=== PATIENT | male | born 1985 | race Caucasian/White ===

== ENCOUNTER 2020-04-25 08:09 | Outpatient (CLI) | payer BC ==
[2020-04-25] MEDS ORDERED: Lidocaine 1% PF 10 ML AMP ONE (08:50)
[2020-04-25] MEDS ORDERED: EPINEPHrine 1 MG/ML AMP ONE (08:50)
[2020-04-25] MEDS ORDERED: Gadobenate Dimeglumine 529 MG/1 ML (20ML VIAL) ONE (08:50)
[2020-04-25] MEDS ORDERED: Iopamidol 300 61% 50 ML VIAL FS ONE (08:50)
[2020-04-25] MEDS ORDERED: Magnevist 469MG/ML 20 ML VIAL ONE (13:13)
--- NOTE | 2020-04-25 14:22 | MRI ---
POST ARTHROGRAM MRI OF RIGHT SHOULDER PERFORMED WITH CONTRAST ENHANCEMENT: 04/25/20 HISTORY: Post arthrogram MRI of the right shoulder performed with contrast enhancement. HISTORY: Right shoulder injury. Mild arthrosis of the AC joint. The supra as well as infraspinatus tendons are intact. Subscapularis muscle and tendon are normal in appearance. The biceps tendon is normal in position wit hin the bicipital groove. The bicipital labral complex shows a SLAP type tear beginning at the level of the biceps anchor exten ding into the superior and slightly into the posterior superior labrum. The inferior glenohumeral ligaments and labral complex appears intact. Some extravasation of fluid wh ich is felt to be iatrogenic. IMPRESSION: SLAP type tear involving the superior and posterior superior labrum. POS: GRACE
--- NOTE | 2020-04-25 18:50 | RAD ---
Arthrogram right shoulder HISTORY: Right rotator cuff tear. Shoulder pain. FINDINGS: After explaining the procedure and answering all questions, the anterior aspect of the [facility] t shoulder was prepped and draped in usual sterile fashion. Sterile technique, buffered local anesthesia, fluoroscopic guidance, and an anterior approach were us ed to carefully advance the tip of a 22-gauge spinal needle to the joint capsule at the level of the humeral head. A total volume of 8 cc liquid mixture containing normal saline, 1% lidocaine, iodinated contrast, and small amounts of gadolinium and epinephrine were then instilled into the joint capsule under fluoroscopic control. Needle was removed. Patient tolerated the procedure well and was transferred to MRI in good condition for further imaging. IMPRESSION : Technically successful right shoulder arthrogram. MRI is pending.
== END 2020-04-25 08:10 | disposition home or self-care (01) ==
LOC: RAD 08:09
PROVIDERS: ATTEND Orthopaedic Surgery
DX: S46.011A Strain of muscle(s) and tendon(s) of the rotator cuff of right shoulder, initial encounter (principal); S43.431A Superior glenoid labrum lesion of right shoulder, initial encounter
CPT/HCPCS: 23350; A9577; A9579; J0171; J2001; Q9967

== ENCOUNTER 2020-04-30 07:00 | Outpatient (CLI) | payer BC ==
[2020-04-30 16:11] LABS: #Basophils 0.1 10x3/uL (0.0-0.2); #Eosinphils 0.1 10x3/uL (0.0-0.5); #Monocytes 0.4 10x3/uL (0.0-1.1); %Basophils 1.2 % (0.0-2.0); %Eosinophils 2.8 % (0.0-6.0); %Monocytes 8.5 % (0.0-10.0); %Neutrophils 59.3 % (40.0-75.0); Hemoglobin 13.5 g/dL (14.0-18.0); Mean Corpuscular HGB CONC 32.8 G/DL (32.0-36.0); Mean Corpuscular Hemoglobin 29.4 PG (27.0-33.0); Mean Corpuscular Volume 89.8 fl (80.0-100.0); Mean Platelet Volume 10.9 fl (7.4-10.4); Platelet Count 256 10x3/uL (130-400); RBC Distribution Width 12.4 % (11.5-14.5); Red Blood Cell (RBC) Count 4.59 10x6/uL (4.40-5.80)
[2020-04-30 16:23] LABS: Anion Gap 15 mmol/L (10-20); BUN (Urea Nitrogen) 12 mg/dL (8.9-20.6); Calc. Creatinine Clearance 0 mL/min (70-130); Calcium 9.3 mg/dL (7.8-10.44); Carbon Dioxide 24 mmol/L (22-29); Chloride 105 mmol/L (98-107); Glucose 97 mg/dL (70-105); Potassium 3.9 mmol/L (3.5-5.1); Sodium 140 mmol/L (136-145)
[2020-05-01 09:42] LABS: SARS-CoV-2 MS2 Positive; SARS-CoV-2 N Gene Negative; SARS-CoV-2 S Gene Negative; SARS-CoV-2 by NAA Not Detected (NotDetected); SARS-CoV-2 orf1ab Negative
== END 2020-04-30 07:01 | disposition home or self-care (01) ==
LOC: LABBT 07:00
PROVIDERS: ATTEND Orthopaedic Surgery
DX: Z01.812 Encounter for preprocedural laboratory examination (principal); S43.401A Unspecified sprain of right shoulder joint, initial encounter; Z20.828 Contact with and (suspected) exposure to other viral communicable diseases
CPT/HCPCS: 80048; 85025; 87635; U0003

== ENCOUNTER 2020-05-02 07:48 | Day surgery (SDC) | payer BC ==
[2020-05-01 14:34] VITALS: BMI 20.4
[2020-05-02] MEDS ORDERED: PROPOFOL 0 ML ONE (08:34)
[2020-05-02] MEDS ORDERED: Midazolam HCl 2 mg/2 ml Vial ONE (08:37)
[2020-05-02] MEDS ORDERED: Fentanyl 100 MCG/2 ML VIAL ONE (08:37)
[2020-05-02] MEDS ORDERED: Lidocaine 1% PF 5 ML VIAL ONE ×2 (10:16→11:13)
[2020-05-02] MEDS ORDERED: Ketorolac Tromethamine 30 MG/ML VIAL ONE (10:16)
[2020-05-02] MEDS ORDERED: Rocuronium Bromide 10 MG/ML (10ML VIAL) ONE (10:16)
[2020-05-02] MEDS ORDERED: Ropivacaine 0.5% HCl/PF (150 MG/30 ML VIAL) ONE (10:16)
[2020-05-02] MEDS ORDERED: Ropivacaine 0.2% HCl/PF (40 MG/20 ML VIAL) ONE (10:16)
[2020-05-02] MEDS ORDERED: PROPOFOL 200 MG/20 ML VIAL ONE (10:16)
[2020-05-02] MEDS ORDERED: Ondansetron PF 4 MG/2 ML Vial ONE (10:16)
[2020-05-02] MEDS ORDERED: Dexamethasone 20 MG/5 ML VIAL ONE (10:16)
[2020-05-02] MEDS ORDERED: Glycopyrrolate 0.2 MG/ML 5 ML SYRINGE ONE (10:16)
[2020-05-02] MEDS ORDERED: Rocuronium Bromide 50 MG/5 ML VIAL ONE (11:13)
[2020-05-02] MEDS ORDERED: PROPOFOL 20 ML ONE (11:13)
[2020-05-02] MEDS ORDERED: Ondansetron PF 4 MG/2 ML Vial IVP PRN (11:15)
[2020-05-02] MEDS ORDERED: Zolpidem Tartrate 5 MG TAB PO PRN (11:15)
[2020-05-02] MEDS ORDERED: Promethazine HCl 25 MG/ML VIAL IM PRN (11:15)
[2020-05-02] MEDS ORDERED: Ketorolac Tromethamine 30 MG/ML VIAL IVP PRN (11:15)
[2020-05-02] MEDS ORDERED: Ropivacaine 0.2% 550 ML 550 ML NERVE BLCK SCH (11:15)
[2020-05-02] MEDS ORDERED: traMADol HCl 50 MG TAB PO PRN ×2 (11:15)
[2020-05-02] MEDS ORDERED: HYDROcodone/Acetaminophen 5/325 mg Tablet PO PRN ×2 (11:15)
[2020-05-02] MEDS ORDERED: Fentanyl 250 MCG/5 ML VIAL ONE (12:20)
--- NOTE | 2020-05-02 15:49 | OP ---
DATE OF PROCEDURE: 05/02/2020 PROCEDURES PERFORMED: 1. Right shoulder arthroscopic decompression. 2. Arthroscopic labrum debridement. 3. Open biceps tenodesis. LOCAL DELIVERY TRUCK DRIVER: MIRANDA Farfan ESTIMATED BLOOD LOSS: Minimal. SPECIMENS: None. DRAINS: None. COMPLICATIONS: None. The fast food sales assistant/co-surgeon was present through the entire procedure and was responsible for providing exposure, tissue retraction and any necessary limb or tissue manipulation required to obtain necessary reduction or hardware placement. The fast food sales assistant/co-surgeon also provided bleeding control, tissue closure, and suturing in conjunction with the primary surgeon. DESCRIPTION OF PROCEDURE: The patient was taken to the operative room, where general anesthesia was induced. He was placed in left lateral decubitus position. Arm was placed in 15 pounds of traction. Right arm was prepped and draped in usual sterile fashion. Scope was placed in the glenohumeral joint. There was no arthritis. In glenohumeral joint, rotator cuff was completely intact. He had extensive tearing of the labrum superiorly, posteriorly, and anteriorly, was quite macerated. I debrided this labral tear using shaver, detached the biceps tendon, and tagged it. I then placed the scope in the subacromial bursa and performed subacromial decompression using arthroscopic shaver to take down acromial tissue and bursal tissue. I exposed the biceps tendon arthroscopically and decompressed this as well. I then tagged the biceps tendon. I then removed the scope and made a small incision over the biceps tendon. Dissection was carried down through the deltoid to the tendon. Tendon was delivered out of the wound. I removed about [id number] of tendon and prepared the remainder of the tendon using #2 FiberWire and found to be a size 7. I drilled with size 7 hole in the proximal humerus. The tendon was delivered into the drill hole and fixed with a Bio-Tenodesis screw 7 x 23 mm. Sutures were tied over the top. Irrigation was performed. Skin was closed with nylon suture, and sterile dressing was applied. Job ID: [id number]
== END 2020-05-02 16:10 | disposition home or self-care (01) ==
LOC: SDC 07:48
PROVIDERS: ATTEND Orthopaedic Surgery
PROC: 0LS30ZZ Reposition Right Upper Arm Tendon, Open Approach (ICD-10-PCS; principal; 2020-05-02)
PROC: 0MM14ZZ Reattachment of Right Shoulder Bursa and Ligament, Percutaneous Endoscopic Approach (ICD-10-PCS; principal; 2020-05-02)
DX: S43.431A Superior glenoid labrum lesion of right shoulder, initial encounter (principal); G89.18 Other acute postprocedural pain; F17.220 Nicotine dependence, chewing tobacco, uncomplicated; J45.909 Unspecified asthma, uncomplicated; X50.9XXA Other and unspecified overexertion or strenuous movements or postures, initial encounter
CPT/HCPCS: A4306; C1713; J0690; J1100; J1885; J2250; J2405; J2704; J2795; J3010